=== PATIENT | female | born 1960 | race Caucasian/White ===

== ENCOUNTER 2018-02-26 06:47 | Inpatient (IN) ==
[2018-02-19 15:52] LABS: Appearance,Urine CLEAR; Bacteria,Urine 0 /hpf (0); Bilirubin,Urine NEG (NEG); Color,Urine STRAW; Glucose,Urine (UA) NEGATIVE (NEG); Leukocyte Esterase,Urine 75 /uL (NEG); Mucus,Urine FEW /hpf (0); Protein,Urine NEG (NEG); Specific Gravity,Urine 1.008 (1.000-1.035); Urine Blood NEG mg/dL (<0.03); Urine RBC 1 /hpf (0-1); Urine Squamous Epithelial Cell 4 /hpf (0-4); Urine Transitional Epi Cells < 1 /hpf (0-2); Urine WBC 5 /hpf (0-4); Urobilinogen,Urine NEG (NEG)
[2018-02-19 17:36] LABS: Basophils # (Auto) 0 K/mcL (0.0-0.3); Basophils % (Auto) 0.8 % (0.0-2.0); Eosinophils # (Auto) 0.1 K/mcL (0.0-0.7); Eosinophils % (Auto) 2.5 % (0.0-7.0); Granulocytes % (Auto) 63.6 % (38.0-78.0); Lymphocytes # (Auto) 1.4 K/mcL (1.5-4.8); Lymphocytes % (Auto) 26.6 % (15.5-49.0); Mean Cell Volume 84.6 fL (80.0-100.0); Mean Corpuscular HGB Conc 33.7 g/dL (31.0-36.0); Mean Corpuscular Hemoglobin 28.5 pg (26.0-34.0); Monocytes # (Auto) 0.3 K/mcL (0.1-0.9); Monocytes % (Auto) 6.5 % (1.0-12.0); Platelet Count 350 K/mcL (140-440); RBC 4.27 M/mcL (4.00-5.20); Red Cell Distribution Width 13.9 % (11.5-14.5)
[2018-02-19 18:21] LABS: Blood Urea Nitrogen 6 mg/dl (6-20)
[~2018-02-26 06:47] MED LIST: 0.9 % SODIUM CHLORIDE 9 ML, KETOROLAC 30 MG, ROPIVACAINE HCL/PF 49.5 ML, EPINEPHrine 0.... IJ SCH; CELECOXIB 200 MG CAPSULE PO SCH; PREGABALIN 75 MG CAPSULE PO SCH; ceFAZolin 1 GM VIAL IV SCH; oxyCODONE 10 MG TAB.ER.12H PO SCH
[2018-02-26 08:17] LABS: Appearance,Urine CLEAR; Bacteria,Urine 0 /hpf (0); Bilirubin,Urine NEG (NEG); Color,Urine STRAW; Glucose,Urine (UA) NEGATIVE (NEG); Leukocyte Esterase,Urine 25 /uL (NEG); Protein,Urine NEG (NEG); Specific Gravity,Urine 1.008 (1.000-1.035); Urine Blood NEG mg/dL (<0.03); Urine Hyaline Cast 1 /lpf (0-2); Urine RBC < 1 /hpf (0-1); Urine Squamous Epithelial Cell 2 /hpf (0-4); Urine Transitional Epi Cells < 1 /hpf (0-2); Urine WBC 2 /hpf (0-4); Urobilinogen,Urine NEG (NEG)
[2018-02-26] MEDS ORDERED: SCOPOLAMINE 1 PATCH PATCH TOPICAL ONE (09:09)
[2018-02-26] MEDS ORDERED: MIDAZOLAM 2 MG/2 ML VIAL IV ONE (09:30)
[2018-02-26] MEDS ORDERED: KETAMINE 100 MG/ML ML IV ONE (09:30)
[2018-02-26] MEDS ORDERED: PROPOFOL 200 MG/20 ML VIAL IV ONE (09:30)
[2018-02-26] MEDS ORDERED: PHENYLEPHRINE 10 MG/ML VIAL IV ONE (09:30)
[2018-02-26] MEDS ORDERED: ROPIVACAINE HCL/PF 30 ML VIAL IJ ONE (09:30)
[2018-02-26] MEDS ORDERED: ONDANSETRON 4 MG/2 ML VIAL IV ONE (09:30)
[2018-02-26] MEDS ORDERED: LIDOCAINE HCL/PF 100 MG/5 ML SYRINGE IV ONE (09:30)
[2018-02-26] MEDS ORDERED: TRANEXAMIC ACID 1,000 MG/10 ML VIAL IV ONE ×2 (09:30→11:19)
[2018-02-26] MEDS ORDERED: GLYCOPYRROLATE 0.2 MG/ML VIAL IV ONE (09:30)
[2018-02-26] MEDS ORDERED: FLEETS ADULT ENEMA PR PRN (11:19)
[2018-02-26] MEDS ORDERED: BENZOCAINE/MENTHOL 1 LOZENGE PO PRN (11:19)
[2018-02-26] MEDS ORDERED: HYDROmorphone 2 MG/ML VIAL IV PRN (11:19)
[2018-02-26] MEDS ORDERED: MAGNESIUM HYDROXIDE 30 ML ORAL.SUSP PO PRN (11:19)
[2018-02-26] MEDS ORDERED: BISACODYL 10 MG SUPP.RECT PR PRN (11:19)
[2018-02-26] MEDS ORDERED: POLYETHYLENE GLYCOL 3350 17 GM PACKET PO PRN (11:19)
[2018-02-26] MEDS ORDERED: ONDANSETRON 4 MG/2 ML VIAL IV PRN ×2 (11:19→11:57)
--- NOTE | 2018-02-26 11:19 | Brief Operative Note ---
Date of procedure: 02/26/18 Pre-op diagnosis: Left knee DJD Post-op diagnosis: same Procedure: Left robotic assisted total knee arthroplasty Grafts/Implants: Yes ([place] Triathlon PS 4 femur, 4 tibia, 9mm insert, 33 patella) Anesthesia: spinal, GLMA Findings: 20 deg hyperextension with valgus deformity Complications: none Surgeon: Alexy Raymond Manager Skilled: Camilo Montgomery Estimated blood loss (cc): 30 Specimens Removed/Pathology: none sent Condition: stable Disposition: PACU
[2018-02-26] MEDS ORDERED: BACLOFEN 10 MG TABLET PO PRN (11:22)
[2018-02-26] MEDS ORDERED: valACYclovir 1,000 MG TABLET PO PRN (11:22)
[2018-02-26] MEDS ORDERED: fentaNYL 100 MCG/2 ML VIAL IV PRN (11:57)
[2018-02-26] MEDS ORDERED: MEPERIDINE 25 MG/ML SYRINGE IV PRN (11:57)
[2018-02-26] MEDS ORDERED: ACETAMINOPHEN 1,000 MG/100 ML BOTTLE IV ONE (11:57)
[2018-02-26] MEDS ORDERED: METHOCARBAMOL 1,000 MG/10 ML VIAL IV PRN (11:57)
[2018-02-26] MEDS ORDERED: IPRATROPIUM/ALBUTEROL 3 ML AMPUL.NEB NEB PRN (11:57)
[2018-02-26] MEDS ORDERED: LACTATED RINGERS 1,000 ML IV SCH (12:00)
--- NOTE | 2018-02-26 12:21 | XRay Report ---
CLINICAL INFORMATION: Postop total knee prostheses COMPARISON: None. FINDINGS: Total knee prosthesis is anatomically aligned. No osseous abnormality. Periarticular gas and soft tissue swelling noted. IMPRESSION: Negative Interpreted and Authenticated by: Delbert Medina 02/26/18
--- NOTE | 2018-02-26 12:25 | Operative Note ---
DATE OF OPERATION: 02/26/2018 PREOPERATIVE DIAGNOSIS: Left knee degenerative joint disease. POSTOPERATIVE DIAGNOSIS: Left knee degenerative joint disease with fairly severe ligamentous laxity. PROCEDURE PERFORMED: Left robotic-assisted total knee arthroplasty placing a [place] Triathlon posterior stabilized size 4 femoral component, size 4 tibial baseplate, 9 mm X3 tibial insert with a 33 mm patellar button. SURGEON: Alexy Raymond M.D. RIGHT OF WAY SUPERVISOR: Randell Montgomery PA-C. ANESTHESIA: Spinal plus general. DRAINS: None. SPECIMENS: Bone cuts which were discarded. BLOOD LOSS: 30 mL. COMPLICATIONS: None. POSTOPERATIVE CONDITION: Stable. INDICATIONS FOR SURGERY: This is a 57-year-old female who is complaining of left knee pain. I believe she had already had a knee arthroscopy without significant relief. Radiographs showed progression of the joint space narrowing laterally. FINDINGS AT SURGERY: Degenerative changes in addition to 20 degrees of hyperextension and significant valgus deformity. Post implantation showed good overall limb alignment, patellar tracking, and correction of the hyperextension. PROCEDURE IN DETAIL: The patient had been seen preoperatively and informed consent had been obtained after discussion of risks and benefits of surgery. Risks including, but not limited to, bleeding, possibly requiring transfusion; infection, possibly requiring implant removal and prolonged IV antibiotics; injury to nerves, blood vessels and other surrounding structures; anesthetic risks; incomplete or no resolution of symptoms; stiffness; pain; instability; swelling; DVT and pulmonary embolus risks; and the possibility of needing further revision surgery. She understood these risks and wished to proceed. Correct operative site was marked, and the patient was taken to the operating room after spinal anesthesia was given. After LMA general given, the left lower extremity was carefully prepped and draped in normal sterile fashion. Time out was performed verifying patient name, operative site, and plan. Esmarch was used to exsanguinate the extremity and tourniquet was inflated. A midline incision was made with scalpel through skin and subcutaneous tissue. Irrisept was irrigated. The medial parapatellar arthrotomy made. Limited subperiosteal exposure was done of the anterior medial tibia. Checkpoint was placed in the tibia and the femur. Two stab incisions were made over the femur and two over the tibia and bicortical pins placed and the arrays connected. We then did fat pad resection as well as anterior horns of the menisci and ACL. We went ahead and checked her leg. She hyperextended and she measured 20 degrees of hyperextension. We went ahead and did our hip center of rotation, as well as green probe checked the medial and lateral malleoli, as well as double checked the femoral and tibial check points. Blue probe was used to do our mapping. We then removed osteophytes which were a few. We then checked with our spoons. She was very lax both in flexion and extension. We adjusted the implant so we had 17 mm gaps flexion and extension medially and extension laterally. Flexion laterally was tight, so we went ahead and used the robotic arm with the saw to make our bone cuts. We then placed the trial implants. She was tight laterally in flexion, so we did pie-crust the IT band which allowed us then to get a 9 insert trial in. Patella tended to want to track lateral still. We went ahead and freehand resected, removing 9 mm of bone. We sized her to a 33 and medialized maximally. We then drilled the holes and placed patellar trial. Lateral facetectomy was performed with a saw. We did have to perform a lateral release to get the patella to track well. We went ahead and removed trial implants. Definitive implants were opened. We irrigated the joint with Irrisept, after a minute pulse lavaged copiously with saline. CO2 was used to clean and dry the surfaces. Antibiotic cement had been mixed. We cemented the tibia followed by the femur. Excess cement removed. The 9 insert trial was placed. The knee was taken into extension. We removed the check points and then filled the joint with Irrisept. We also removed our arrays after we verified that we had corrected the hyperextension. She ended up about 2 or 3 degrees short of full extension. We then injected pain cocktail into the pericapsular subcutaneous tissues. Once cement had fully hardened, we flexed the knee back up and did a final removal for excess cement. We also injected the posterior capsule with pain cocktail and then irrigated with Irrisept. We then impacted the definitive insert and then pulse lavaged with saline. The knee was placed in 45 degrees of flexion. Interrupted #2 FiberWire [id number] were used around the patella, interrupted #1 Vicryl [id number] around the inferior quadrant of the patella, running #1 for patellar tendon and quad tendon. Final Irrisept irrigation was done, and then pulse lavage, and then 2-0 Monocryl for subcutaneous and sarah for skin. Xeroform and sterile dressing were applied. Tourniquet was released. The patient was awakened, extubated, and transferred to recovery in stable condition. CHERELLE:chelsea Job ID: [id number] Doc ID: [id number] Alexy Raymond MD
[2018-02-26] MEDS: KETOROLAC 30 MG/ML VIAL IV SCH ×3 (12:57→23:53)
[2018-02-26] MEDS: 0.9 % SODIUM CHLORIDE 1,000 ML IV SCH ×2 (12:57→23:09)
[2018-02-26] MEDS: 0.9 % SODIUM CHLORIDE 10 ML SYRINGE IV SCH (15:57)
[2018-02-26] MEDS: ceFAZolin 1 GM VIAL IV SCH (16:48)
[2018-02-26] MEDS: oxyCODONE/APAP 5/325MG TABLET PO PRN ×2 (17:04→21:42)
[2018-02-26] MEDS ORDERED: DOXEPIN 25 MG CAPSULE PO SCH (21:00)
[2018-02-26] MEDS ORDERED: SENNOSIDES 1 TABLET PO SCH (21:00)
[2018-02-26] MEDS: CALCIUM (OYSTER SHELL) 500 MG TABLET PO SCH (21:44)
[2018-02-26] MEDS: DOCUSATE SODIUM 100 MG CAPSULE PO SCH (21:44)
[2018-02-26] MEDS: buPROPion 100 MG TAB.SR.12H PO SCH (21:44)
[2018-02-26] MEDS: ASPIRIN 325 MG ENTERIC COATED TABLET PO SCH (21:45)
[2018-02-27] MEDS: 0.9 % SODIUM CHLORIDE 10 ML SYRINGE IV SCH ×3 (02:19→14:21)
[2018-02-27] MEDS ORDERED: ceFAZolin 1 GM VIAL ONE (02:20)
[2018-02-27] MEDS: ceFAZolin 1 GM VIAL IV SCH (02:21)
[2018-02-27] MEDS: oxyCODONE/APAP 5/325MG TABLET PO PRN ×3 (04:30→14:19)
[2018-02-27] MEDS: KETOROLAC 30 MG/ML VIAL IV SCH ×2 (05:55→12:27)
--- NOTE | 2018-02-27 07:46 | Discharge Summary ---
Providers - Providers Patient information: Note initiated : 02/27/18 at 7:41 am Service Date, if different from initiated Date: [] Patient: Madalyn Lugo 57 y/o F admitted on 02/26/18 for Left Robotic Total Knee Arthroplasty. Chief Complaint: [] Discharge date: 02/27/18 Hospitalization Hospital course: Pt was admitted for a TKA. Pt underwent the procedure on the day of admission. Pt spent one night on the floor for IV pain meds, IV abx, and PT. Pt will attend out-pt PT, and f/u in 2 weeks. Will use ASA for DVT prophylaxis. Discharge diagnosis: L knee OA Exam - Exam Clean and dry: Yes Weight bearing status: as tolerated Ortho Discharge - TKA - Patient Instructions Diet: Regular Diet Activity: activity as tolerated Total Knee Protocol: For Total Knee: Start ROM STANLEY with stationary bike or rocking chair. Work on gaining full extension of knee. Posterior dislocation precautions provided. Hip abductor strengthening and gait training instructions provided. Apply Cryocuff as instructed. Dressing Care: May shower in 2 days - Follow Up Plan Disposition: Home, Self-Care Prognosis: Good Rehab Potential: Good Overall status at discharge: patient is progressing back to baseline - Orders For Discharge Prescriptions: Aspirin [Ecotrin] 325 mg PO BID #30 tab.ec oxyCODONE HCL [Oxycodone HCl] 10 mg PO Q6HP PRN #80 tab PRN Reason: knee pain Pending Studies Resuscitation Status Full Code Diet Regular Diet Start SatFeb 26 1120 Aspirin (Ecotrin) 325 mg PO BID [facility] Last Admin: 02/26/18 21:45 Dose: 325 mg Bupropion HCl (Wellbutrin Sr) 200 mg PO BID [facility] Last Admin: 02/26/18 21:44 Dose: 200 mg Calcium Carbonate/Glycine (Oscal) 500 mg PO BID [facility] Last Admin: 02/26/18 21:44 Dose: 500 mg Docusate Sodium (Colace) 100 mg PO BID [facility] Last Admin: 02/26/18 21:44 Dose: 100 mg Doxepin HCl (Sinequan) 150 mg PO HS [facility] Last Admin: 02/26/18 21:44 Dose: 150 mg Sodium Chloride (Sodium Chloride 0.9%) 1,000 mls @ 100 mls/hr IV .Q10H [facility] Last Admin: 08/15/18 23:09 Dose: 100 mls/hr Infusion: 02/26/18 22:57 Dose: 100 mls/hr Admin: 02/26/18 12:57 Dose: 100 mls/hr Ketorolac Tromethamine (Toradol) 30 mg IV Q6 [facility] Stop: 02/28/18 06:01 Last Admin: 02/27/18 05:55 Dose: 30 mg Admin: 02/26/18 23:53 Dose: 30 mg Admin: 02/26/18 17:05 Dose: 30 mg Admin: 02/26/18 12:57 Dose: 30 mg Oxycodone/Acetaminophen (Percocet 5-325 Mg) 0 tab PO Q4HP PRN PRN Reason: PAIN LEVEL 3-6 Last Admin: 02/27/18 04:30 Dose: 2 tab Admin: 02/26/18 21:42 Dose: 2 tab Admin: 02/26/18 17:04 Dose: 2 tab Senna (Senokot) 2 tab PO HS [facility] Last Admin: 02/26/18 21:45 Dose: 2 tab Sodium Chloride (Saline Flush) 10 ml IV Q8 [facility] Last Admin: 02/27/18 05:30 Dose: Not Given Admin: 02/27/18 02:19 Dose: Not Given Admin: 02/26/18 15:57 Dose: Not Given Shift Summary 02/27/18 05:19 Shift Summary by Dawson Saini Dressing to L knee CDI. AV boots, cryo. Up with 1 assist, fww, gait belt and fww. Has no incontinent episodes as well as vd 780 bathroom with PVR of 578. IV with NS @ 100. Medicated with scheduled toradol x2, 2 percocet last 0500. Using IS. Tolerating regular diet. Will call appropriately. Initialized on 02/27/18 05:19 - END OF NOTE
[2018-02-27] MEDS: buPROPion 100 MG TAB.SR.12H PO SCH (08:57)
[2018-02-27] MEDS: DOCUSATE SODIUM 100 MG CAPSULE PO SCH (08:57)
[2018-02-27] MEDS: ASPIRIN 325 MG ENTERIC COATED TABLET PO SCH (08:57)
[2018-02-27] MEDS: CALCIUM (OYSTER SHELL) 500 MG TABLET PO SCH (08:57)
[2018-02-27] MEDS: 0.9 % SODIUM CHLORIDE 1,000 ML IV SCH (08:59)
[2018-02-27] MEDS ORDERED: LACTOBACILLUS 1 CAPSULE PO SCH (09:00)
[2018-02-27] MEDS ORDERED: ERGOCALCIFEROL (VITAMIN D2) 50,000 UNIT CAPSULE PO SCH (09:00)
[2018-02-27] MEDS ORDERED: FOLIC ACID 1 MG TABLET PO SCH (09:00)
[2018-02-27] MEDS ORDERED: Betamethasone Dipropionate Cream TOPICAL SCH (09:00)
[2018-02-27] MEDS ORDERED: lamoTRIgine 100 MG TABLET PO SCH (09:00)
[2018-02-27] MEDS ORDERED: ARIPIPRAZOLE 5 MG TABLET PO SCH (09:00)
[2018-02-27] MEDS ORDERED: FLUTICASONE PROPIONATE SPRAY.NAS NS SCH (09:00)
[2018-02-27] MEDS ORDERED: CYANOCOBALAMIN (VITAMIN B-12) 500 MCG TABLET PO SCH (09:00)
== END 2018-02-27 16:55 | disposition home or self-care (01) | DRG 470 ==
LOC: MEDSUR 06:47
PROVIDERS: ADMIT Orthopaedic Surgery; ATTEND Orthopaedic Surgery